=== PATIENT | female | born 1975 | race Caucasian/White ===

== ENCOUNTER → 2017-10-12 15:49 | Outpatient (CLI) | payer SELFPAY ==
[2017-10-12 18:18] LABS: Free T3 2.2 pg/mL (2.18-3.98); T4 Free Direct 1.09 ng/dL (0.76-1.46); Thyroid Stim Hormone (TSH) 0.42 uIU/mL (0.358-3.74)
== END ==
PROVIDERS: Family Provider Family Medicine; PCP Family Medicine; Visit Provider Nurse Practitioner
DX: R94.6 Abnormal results of thyroid function studies (principal)
CPT/HCPCS: 36415; 84439; 84443; 84481

== ENCOUNTER → 2018-10-11 09:06 | Outpatient (CLI) | payer OTHER, SELFPAY ==
[2017-10-16 15:01] VITALS: BMI 26.6
[2018-10-11 10:17] LABS: Free T3 2.6 pg/mL (2.18-3.98); T4 Free Direct 1.21 ng/dL (0.76-1.46); Thyroid Stim Hormone (TSH) 0.11 uIU/mL (0.358-3.74)
== END ==
PROVIDERS: Family Provider Family Medicine; PCP Family Medicine; Referring Provider Nurse Practitioner; Visit Provider Nurse Practitioner
DX: E03.9 Hypothyroidism, unspecified (principal)
CPT/HCPCS: 36415; 84439; 84443; 84481

== ENCOUNTER → 2019-01-08 | Outpatient (CLI) | payer OTHER, SELFPAY ==
[2018-10-18 10:03] VITALS: BMI 26.6
[2019-01-08 09:37] LABS: Thyroid Stim Hormone (TSH) 1.49 uIU/mL (0.358-3.74)
== END | disposition home or self-care (01) ==
PROVIDERS: Nurse Practitioner; Family Provider Family Medicine; PCP Family Medicine; Referring Provider Family Medicine; Visit Provider Family Medicine
DX: E03.9 Hypothyroidism, unspecified (principal)
CPT/HCPCS: 36415; 84443

== ENCOUNTER → 2020-08-14 16:33 | Outpatient (CLI) | payer OTHER, SELFPAY ==
[2018-10-18 10:03] VITALS: BMI 26.6
[2020-08-19 13:53] LABS: HPV APTIMA, High Risk Negative (Negative)
== END ==
PROVIDERS: PCP Family Medicine; Referring Provider Obstetrics & Gynecology; Visit Provider Obstetrics & Gynecology
DX: Z12.4 Encounter for screening for malignant neoplasm of cervix (principal)
CPT/HCPCS: 87624; 88175; G0145

== ENCOUNTER → 2020-08-25 07:10 | Outpatient (CLI) | payer SELFPAY ==
[2018-10-18 10:03] VITALS: BMI 26.6
--- NOTE | 2020-08-25 07:16 | BI_ITS ---
MAMMOGRAPHY - BILATERAL SCREENING REASON FOR EXAM: Female, 45 years old. Routine annual screening examination. PERTINENT HISTORY: Grandmother with breast cancer. TECHNIQUE: Digital bilateral breast rayne (3D mammographic acquisition) in the CC and MLO projections. 2-D mediolateral oblique (MLO) and craniocaudad (CC) views of both breasts were obtained. CAD: Full Field Digital Mammography with Computer Added Detection was performed. COMPARISON: Comparison is made with prior outside examination dated 11/30/2016. FINDINGS: Breast Composition: The breasts are extremely dense, which lowers the sensitivity of mammography. There are no dominant masses or suspicious calcifications. No other significant abnormalities are identified. There has been no significant change since the prior study. BI/SCRN MAMM (CAD)W/RAYNE BILAT IMPRESSION: Stable bilateral screening mammogram. Yearly follow-up mammogram recommended. (A) ASSESSMENT CATEGORY: BIRADS Category 1: Negative. A letter regarding these results will be sent to the patient by the facility within 30 days. Approximately 10% of breast cancers are not detected by mammography. A normal mammogram should not delay biopsy of a clinically suspicious abnormality. [id number] Electronically Signed: Kirill Sandoval MD at 12:14 EST , Service support ,
[2020-08-25 08:18] LABS: Absolute Lymphocyte Count 1.72 X10^3/uL (0.83-4.51); Absolute Neutrophil Count 3.4 X10^3/uL (2.0-7.7); Basophil# 0.06 X10^3/uL; Basophil% 1.1 % (0-1); Eosinophil# 0.16 X10^3/uL; Eosinophils% 2.8 % (0-5); Hematocrit 40.5 % (37-47); Hemoglobin 13.2 g/dL (12.0-15.0); Lymphocyte # 1.72 X10^3/ul (4.0); Lymphocyte % 30.3 % (19-41); Mean Corp Hgb Conc 32.6 g/dL (32-36); Mean Corpuscular Hgb 30.7 pg (27.0-32.0); Mean Corpuscular Volume 94.2 fL (81-99); Mean Platelet Vol. 10.2 fl (6.2-12.0); Monocyte# 0.37 X10^3/uL; Monocyte% 6.5 % (0-10); NRBC Flagged by Analyzer 0 % (0-5); Neutrophil # 3.36 X10^3/uL (2.7-7.7); Neutrophil % 59.1 % (47-70); Platelet Count 227 K/mm3 (150-450); RBC Distribution Width CV 11.5 % (11.6-14.6); RBC Distribution Width SD 39.9 fl (35.1-43.9); White Blood Count 5.7 K/mm3 (4.4-11.0)
[2020-08-25 08:36] LABS: Cholesterol 195 mg/dL (200); Free T3 2.4 pg/mL (2.18-3.98); Glucose 88 mg/dL (74-106); High Density Lipoprotein 71 mg/dL; T4 Free Direct 1.17 ng/dL (0.76-1.46); Thyroid Stim Hormone (TSH) 0.96 uIU/mL (0.358-3.74); Triglycerides 60 mg/dL; Very Low Density Lipoprotein 12 mg/dL (5-40)
== END ==
PROVIDERS: PCP Family Medicine; Referring Provider Obstetrics & Gynecology; Visit Provider Obstetrics & Gynecology
DX: Z12.31 Encounter for screening mammogram for malignant neoplasm of breast (principal); Z13.1 Encounter for screening for diabetes mellitus; Z13.220 Encounter for screening for lipoid disorders; Z13.21 Encounter for screening for nutritional disorder
CPT/HCPCS: 36415; 77063; 77067; 80061; 82306; 82947; 84439; 84443; 84481; 85025

== ENCOUNTER 2021-11-02 09:50 | Outpatient (CLI) | payer OTHER, SELFPAY ==
[2021-11-02 12:34] LABS: Vitamin D,25 Hydroxy 70.2 ng/mL
[2021-11-02 13:14] LABS: T4 Free Direct 1.23 ng/dL (0.76-1.46); Thyroid Stim Hormone (TSH) 0.34 uIU/mL (0.358-3.74)
[2021-11-02 13:19] LABS: Hemoglobin A1c 5.2 % (3.8-5.6)
[2021-11-04 18:37] LABS: Anti-Thyroglobulin AB < 1.0 IU/mL (0.0-0.9); Thyroglobulin, Serum Qt. < 0.1 ng/mL (1.5-38.5)
== END 2021-11-02 23:59 | disposition home or self-care (01) ==
LOC: BIMLAB 09:51
PROVIDERS: PCP Family Medicine; Referring Provider Internal Medicine Endocrinology, Diabetes & Metabolism; Visit Provider Internal Medicine Endocrinology, Diabetes & Metabolism
DX: R73.09 Other abnormal glucose (principal); C73 Malignant neoplasm of thyroid gland; E55.9 Vitamin D deficiency, unspecified; E03.9 Hypothyroidism, unspecified
CPT/HCPCS: 36415; 82306; 83036; 84432; 84439; 84443; 86800

== ENCOUNTER → 2022-10-20 | Outpatient (CLI) | payer OTHER, SELFPAY ==
[2022-10-20 11:19] LABS: AST(SGOT) 23 U/L (15-37); Alanine Aminotransfer ALT/SGPT 25 U/L (13-56); Albumin, Serum 3.9 g/dL (3.2-5.0); Alkaline Phosphatase 71 U/L (45-117); Anion Gap 6 (5-15); BUN 20 mg/dL (7-18); Calcium,Total 9.7 mg/dL (8.5-10.1); Chloride 106 mmol/L (98-107); Creatinine, Serum 0.87 mg/dL (0.55-1.02); EST Glomerular Filtration Rate 73 mL/min (>60); Est Glom Filt Rate - Afr Amer 89 mL/min (>60); Globulin 4.1 g/dL (2.2-4.2); Glucose 105 mg/dL (74-106); Potassium 4.2 mmol/L (3.5-5.1); Sodium Level 141 mmol/L (136-145); T4 Free Direct 1.13 ng/dL (0.76-1.46); Thyroid Stim Hormone (TSH) 1.98 uIU/mL (0.358-3.74)
[2022-10-23 08:30] LABS: Anti-Thyroglobulin AB < 1.0 IU/mL (0.0-0.9); Thyroglobulin, Serum Qt. < 0.1 ng/mL (1.5-38.5)
== END | disposition home or self-care (01) ==
PROVIDERS: PCP Family Medicine; Referring Provider Internal Medicine Endocrinology, Diabetes & Metabolism; Visit Provider Internal Medicine Endocrinology, Diabetes & Metabolism
DX: C73 Malignant neoplasm of thyroid gland (principal); E03.9 Hypothyroidism, unspecified
CPT/HCPCS: 36415; 80053; 84432; 84439; 84443; 86800

== ENCOUNTER → 2022-10-26 | Outpatient (CLI) | payer OTHER, SELFPAY ==
--- NOTE | 2022-10-26 18:13 | US_ITS ---
STUDY: THYROID ULTRASOUND REASON FOR EXAM: Female, 47 years old. 1.5 cm mass in the left central medial region of the thyroid bed. TECHNIQUE: Ultrasound evaluation of the thyroid was performed with real-time and static norton-scale imaging. COMPARISON: None. FINDINGS: The thyroid is surgically absent. There is no evidence of residual thyroid tissue. In the left neck at the area of palpable mass, there are 2 small hypoechoic masses measuring 1.3 x 0.5 x 0.3 cm and 1.1 x 0.7 x 0.3 cm. These may represent small lymph nodes although expected vascularity is not seen. US/Thyroid IMPRESSION: 1. Status post thyroidectomy. 2. Small hypoechoic soft tissue mass is the area of concern. Question small lymph nodes. Electronically Signed: Morales Claros DO at 21:33 EDT ,
== END | disposition home or self-care (01) ==
LOC: US 18:13
PROVIDERS: PCP Family Medicine; Referring Provider Internal Medicine Endocrinology, Diabetes & Metabolism; Visit Provider Internal Medicine Endocrinology, Diabetes & Metabolism
DX: C73 Malignant neoplasm of thyroid gland (principal)
CPT/HCPCS: 76536

== ENCOUNTER 2022-11-15 06:39 | Outpatient (CLI) | payer SELFPAY, OTHER ==
--- NOTE | 2022-11-15 06:45 | CT_ITS ---
INDICATION: LEFT NECK LYMPHADENOPATHY EXAMINATION: CT NECK WITH CONTRAST - CT Soft Tissue Neck W/ Contrast Injection TECHNIQUE: Helically acquired images were obtained of the neck following IV contrast. A radiation dose optimization technique was used for this scan. IV Contrast dosage and agent: 100 mL [id number] RADIATION DOSAGE (If Supplied By Facility): CTDIvol = ( 16.07 ) mGy, DLP = ( 469.64 ) mGycm COMPARISON: Thyroid ultrasound October 26, 2022. FINDINGS: Lung apices are clear. Surgically absent thyroid. Unremarkable right submandibular gland. Fatty-replaced left submandibular gland. Diminutive fatty replaced parotid glands. Adenoid, palatine, and lingual tonsils are symmetric and normal in appearance without surrounding fluid collection or abscess. Parapharyngeal fat is preserved. Base of the tongue is symmetric without focal enhancing mass. Normal epiglottis. No prevertebral soft tissue thickening. Lymph nodes adjacent to the carotid and jugular vessels measure up to 5 x 4 mm in the axial plane on the left and 79 x 5 mm on the right, level 2A, without necrosis. No suspicious cassi enlargement or morphology. Limited intracranial visualization unremarkable. No acute osseous finding. Mild disc height loss with small posterior disc aspect complexes C5-C6 with minimal spinal canal and mild neural foraminal narrowing. CT/Soft Tissue Neck WITH Contrast IMPRESSION: Small bilateral level 2A lymph nodes are present, slightly larger on the right without suspicious features.] Clinical follow-up recommended with repeat imaging indicated Fatty replacement of the bilateral parotid and left submandibular glands. Surgically absent thyroid. Electronically Signed: Justus Dawson MD at 7:12 EDT ,
== END 2022-11-15 23:59 | disposition home or self-care (01) ==
PROVIDERS: PCP Family Medicine; Referring Provider Otolaryngology Otolaryngology/Facial Plastic Surgery; Visit Provider Otolaryngology Otolaryngology/Facial Plastic Surgery
DX: R22.1 Localized swelling, mass and lump, neck (principal)
CPT/HCPCS: 70491; Q9967

== ENCOUNTER → 2023-10-23 | Outpatient (CLI) | payer OTHER, SELFPAY ==
[2023-10-23 11:35] LABS: ALB/GLOB Ratio 0.9 RATIO (0.9-2.4); AST(SGOT) 22 U/L (15-37); Alanine Aminotransfer ALT/SGPT 23 U/L (13-56); Albumin, Serum 3.7 g/dL (3.2-5.0); Alkaline Phosphatase 74 U/L (45-117); Anion Gap 5 (5-15); BUN 16 mg/dL (7-18); BUN/Creat Ratio 18.7 RATIO (10-20); Calcium,Total 9.4 mg/dL (8.5-10.1); Chloride 107 mmol/L (98-107); Cholesterol 209 mg/dL (200); Creatinine, Serum 0.86 mg/dL (0.55-1.02); EST Glomerular Filtration Rate 75 mL/min (>60); Est Glom Filt Rate - Afr Amer 90 mL/min (>60); Globulin 4.1 g/dL (2.2-4.2); Glucose 105 mg/dL (74-106); High Density Lipoprotein 69 mg/dL; Potassium 4.1 mmol/L (3.5-5.1); Protein, Total 7.8 g/dL (6.4-8.2); Sodium Level 139 mmol/L (136-145); T4 Free Direct 1.13 ng/dL (0.76-1.46); Thyroid Stim Hormone (TSH) 1.46 uIU/mL (0.358-3.74); Triglycerides 84 mg/dL; Very Low Density Lipoprotein 17 mg/dL (5-40)
[2023-10-24 16:10] LABS: Anti-Thyroglobulin AB < 1.0 IU/mL (0.0-0.9); Thyroglobulin, Serum Qt. < 0.1 ng/mL (1.5-38.5)
== END | disposition home or self-care (01) ==
LOC: LAB 10:07
PROVIDERS: PCP Family Medicine; Referring Provider Internal Medicine Endocrinology, Diabetes & Metabolism; Visit Provider Internal Medicine Endocrinology, Diabetes & Metabolism
DX: E03.9 Hypothyroidism, unspecified (principal); C73 Malignant neoplasm of thyroid gland; E55.9 Vitamin D deficiency, unspecified
CPT/HCPCS: 36415; 80053; 80061; 82306; 84432; 84439; 84443; 86800

== ENCOUNTER → 2024-10-17 | Outpatient (CLI) | payer SELFPAY ==
[2024-10-17 12:22] LABS: ALB/GLOB Ratio 1.3 RATIO (0.9-2.4); AST(SGOT) 27 U/L (<=31); Alanine Aminotransfer ALT/SGPT 19 U/L (<=34); Albumin, Serum 4.2 g/dL (3.5-5.0); Alkaline Phosphatase 70 U/L (35-104); Anion Gap 11 (5-15); BUN 16 mg/dL (4-19); BUN/Creat Ratio 20.6 RATIO (10-20); Calcium,Total 9.4 mg/dL (7.6-11.0); Carbon Dioxide 24.5 mmol/L (21.0-32.0); Chloride 104 mmol/L (98-108); Creatinine, Serum 0.78 mg/dL (0.70-1.20); EST Glomerular Filtration Rate 92 (>60); Globulin 3.2 g/dL (2.2-4.2); Glucose 96 mg/dL (70-99); Potassium 4.2 mmol/L (3.3-5.1); Protein, Total 7.4 g/dL (5.9-8.4); Sodium Level 140 mmol/L (133-145); Total Bilirubin 0.24 mg/dL (0.00-1.30)
[2024-10-17 12:32] LABS: Thyroid Stim Hormone (TSH) 0.765 uIU/mL (0.300-4.200); Vitamin D,25 Hydroxy 72.9 ng/mL (30-100)
[2024-10-18 17:08] LABS: Anti-Thyroglobulin AB < 1.0 IU/mL (0.0-0.9); Thyroglobulin, Serum Qt. < 0.1 ng/mL (1.5-38.5)
== END | disposition home or self-care (01) ==
LOC: LAB 09:40
PROVIDERS: PCP Family Medicine; Referring Provider Internal Medicine Endocrinology, Diabetes & Metabolism; Visit Provider Internal Medicine Endocrinology, Diabetes & Metabolism
DX: E03.9 Hypothyroidism, unspecified (principal); C73 Malignant neoplasm of thyroid gland
CPT/HCPCS: 36415; 80053; 82306; 84432; 84439; 84443; 86800

== ENCOUNTER → 2025-04-17 | Outpatient (CLI) | payer SELFPAY ==
--- NOTE | 2025-04-17 12:12 | US_ITS ---
PROCEDURE: BREAST LIMITED UNILATERAL 04/17/2025 REASON FOR EXAM: F, Age 49 y/o , ABN MAMM COMPARISON: Prior mammogram dated March 19, 2025.. TECHNIQUE: Procedure Code: USBRSTLIMIT Modality: US Procedure: BREAST LIMITED UNILATERAL. The retroareolar region of the left breast was examined with ultrasound. FINDINGS: There is a 3.7 cm 2.4 cm 2.1 cm septated cyst in the retro areolar region of the breast. US/Breast Limited Unilateral IMPRESSION: 3.7 cm 2.4 cm 2.1 cm septated cyst in the retro areolar region of the left [address]. BI-RADS 2: BENIGN RECOMMENDATION: Routine annual follow-up in 1 Year Reading Location: [id number]
== END | disposition home or self-care (01) ==
PROVIDERS: PCP Family Medicine
DX: R92.8 Other abnormal and inconclusive findings on diagnostic imaging of breast (principal)
CPT/HCPCS: 76642